=== PATIENT | female | born 1990 | race Hispanic/Latino ===

== ENCOUNTER 2020-01-29 10:34 | Emergency (ER) | payer BC, OTHER ==
[2020-01-29] MEDS ORDERED: MAGNE/ALUM HYDROXD 30 ML UCUP ONE (11:36)
[2020-01-29] MEDS ORDERED: LIDOCAINE VISCOUS 2% SOLN 15 ML UDC ONE (11:37)
[2020-01-29] MEDS ORDERED: NA CHLORIDE 0.9% 1,000 ML ONE (11:37)
[2020-01-29] MEDS ORDERED: ONDANSETRON 4 MG/2 ML VIAL ONE (11:37)
[2020-01-29] MEDS ORDERED: MORPHINE 4 MG/ML SYR ONE (11:37)
[2020-01-29 12:07] LABS: Basophils % 0.3 % (0-1.3); Hematocrit 41.4 % (36.0-45.0); Lymphocytes % 24.8 % (15.3-44.8); MPV 8.4 fL (7.6-11.3); RBC Red Blood Cell Count 4.91 M/uL (3.86-4.86)
[2020-01-29 12:28] LABS: ALT/SGPT 28 U/L (12-78); AST/SGOT 17 U/L (15-37); Albumin 3.5 g/dL (3.4-5.0); Alkaline Phosphatase 70 U/L (45-117); BUN Blood Urea Nitrogen 9 mg/dL (7-18); Bicarbonate 28 mmol/L (21-32); Bilirubin Direct 0.2 mg/dL (0-0.2); Bilirubin Total 0.6 mg/dL (0.2-1.0); Glucose Level 120 mg/dL (74-106); Lipase 120 U/L (73-393); Potassium 3.6 mmol/L (3.5-5.1); Protein, Total 7.2 g/dL (6.4-8.2); Sodium Level 139 mmol/L (136-145)
--- NOTE | 2020-01-29 12:34 | RAD REPORT ---
EXAM DESCRIPTION: CT - Abdomen Pelvis W Contrast - 01/29/2020 12:21 pm CLINICAL HISTORY: Abdominal pain COMPARISON: none. TECHNIQUE: Computed axial tomography of the abdomen pelvis was obtained. 100 cc Isovue-300 was admin istered intravenously. Oral contrast was not requested which limits evaluation of bowel and appendix. All CT scans are performed using dose optimization technique as appropriate and may include automated exposure control or mA/KV adjustment according to patient size. FINDINGS: Fatty liver. Cholecystectomy Spleen, pancreas, adrenal and kidneys appear unremarkable. There is no evidence of diverticulitis. An abnormal appendix is not visualized IMPRESSION: No acute abnormality is displayed.
--- NOTE | 2020-01-29 13:47 | EDPHYS ---
Physician Documentation [facility] Name: Ciarra Gonzalez Age: 29 yrs Sex: Female : 1990 Arrival Date: 01/29/2020 Time: 10:39 Bed 14 Private MD: ED Physician oLra Ocasio HPI: 01/28 13:44 This 29 yrs old Female presents to ER via Ambulatory with complaints of ma2 Abdominal Pain, Vomiting. 13:44 The patient presents to the emergency department with nausea, vomiting. Onset: The ma2 symptoms/episode began/occurred gradually, 1 week(s) ago. Associated signs and symptoms: Pertinent negatives: belching, dysuria, GI bleeding, hematuria. Severity of symptoms: At their worst the symptoms were moderate in the emergency department the symptoms are unchanged. Severity of symptoms: in the emergency department the symptoms. The patient has not experienced similar symptoms in the past. Historical: - Allergies: 11:00 NKDA; ss - Home Meds: 11:00 None [Active]; ss - PMHx: 11:00 None; ss - PSHx: 11:00 ; Cholecystectomy; ss - Immunization history:: Adult Immunizations unknown. - Social history:: Smoking status: Patient denies any tobacco usage or history of. Patient/guardian denies using alcohol, street drugs, The patient lives with family. - Family history:: not pertinent. ROS: 13:44 Constitutional: Negative for fever, chills, and weight loss. ma2 13:44 All other systems are negative. Exam: 13:44 Constitutional: This is a well developed, well nourished patient who is awake, alert, ma2 and in no acute distress. Head/Face: Normocephalic, atraumatic. Eyes: Pupils equal round and reactive to light, extra-ocular motions intact. Lids and lashes normal. Conjunctiva and sclera are non-icteric and not injected. Cornea within normal limits. Periorbital areas with no swelling, redness, or edema. ENT: Nares patent. No nasal discharge, no septal abnormalities noted. Tympanic membranes are normal and external auditory canals are clear. Oropharynx with no redness, swelling, or masses, exudates, or evidence of obstruction, uvula midline. Mucous membranes moist. Neck: Trachea midline, no thyromegaly or masses palpated, and no cervical lymphadenopathy. Supple, full range of motion without nuchal rigidity, or vertebral point tenderness. No Meningismus. Chest/axilla: Normal chest wall appearance and motion. Nontender with no deformity. No lesions are appreciated. Cardiovascular: Regular rate and rhythm with a normal S1 and S2. No gallops, murmurs, or rubs. Normal PMI, no JVD. No pulse deficits. Respiratory: Lungs have equal breath sounds bilaterally, clear to auscultation and percussion. No rales, rhonchi or wheezes noted. No increased work of breathing, no retractions or nasal flaring. Abdomen/GI: Soft, non-tender, with normal bowel sounds. No distension or tympany. No guarding or rebound. No evidence of tenderness throughout. Skin: Warm, dry with normal turgor. Normal color with no rashes, no lesions, and no evidence of cellulitis. MS/ Extremity: Pulses equal, no cyanosis. Neurovascular intact. Full, normal range of motion. Neuro: Awake and alert, GCS 15, oriented to person, place, time, and situation. Cranial nerves II-XII grossly intact. Motor strength 5/5 in all extremities. Sensory grossly intact. Cerebellar exam normal. Normal gait. Vital Signs: 10:58 BP 128 / 89; Pulse 105; Resp 14; Temp 98.0(TE); Pulse Ox 98% on R/A; Weight 72.57 kg; ss Height 4 ft. 9 in. (144.78 cm); Pain 8/10; 12:30 BP 115 / 83; Pulse 78; Resp 18; Pulse Ox 100% on R/A; Pain 5/10; em 14:09 BP 118 / 78; Pulse 68; Resp 18; Pulse Ox 100% on R/A; Pain 2/10; em 10:58 Body Mass Index 34.62 (72.57 kg, 144.78 cm) ss MDM: 11:14 Patient medically screened. ma2 13:44 Differential diagnosis: gastritis, pancreatitis, appendicitis. Data reviewed: vital ma2 signs, nurses notes. Counseling: I had a detailed discussion with the patient and/or guardian regarding: the historical points, exam findings, and any diagnostic results supporting the discharge/admit diagnosis, the presence of at least one elevated blood pressure reading (>120/80) during this emergency department visit, the need for outpatient follow up. Response to treatment: the patient's symptoms have resolved after treatment. 01/28 11:19 Order name: Basic Metabolic Panel [facility] 01/28 11:19 Order name: CBC with Diff tn2 01/28 11:19 Order name: Hepatic Function; Complete Time: 12:34 ma2 01/28 11:19 Order name: Lipase; Complete Time: 12:34 ma2 01/28 11:20 Order name: Basic Metabolic Panel; Complete Time: 12:34 EDMS 01/28 11:19 Order name: CT Abd/Pelvis - IV Contrast Only; Complete Time: 13:15 ma2 01/28 11:20 Order name: CBC with Automated Diff; Complete Time: 12:34 EDMS 01/28 12:18 Order name: CREATININE WHOLE BLOOD; Complete Time: 12:34 EDMS 01/28 14:04 Order name: Urine Dipstick--Ancillary (enter results) 01/28 14:04 Order name: Urine --Ancillary (enter results) 01/28 11:19 Order name: IV Saline Lock; Complete Time: 12:16 ma2 01/28 11:19 Order name: Labs collected and sent; Complete Time: 12:16 ma2 01/28 11:19 Order name: Urine Dipstick-Ancillary (obtain specimen); Complete Time: 13:52 ma2 Administered Medications: 11:55 Drug: Zofran (Ondansetron) 4 mg Route: IVP; Site: right antecubital; em 13:34 Follow up: Response: No adverse reaction; Nausea is decreased em 11:57 Drug: morphine 4 mg Route: IVP; Site: right antecubital; em 12:30 Follow up: Response: No adverse reaction; Marked relief of symptoms; Pain is decreased; em RASS: Alert and Calm (0) 12:34 Drug: GI Cocktail without - (Maalox Suspension 30 ml, Lidocaine Liquid 2 % 15 em ml) Route: PO; 13:52 Follow up: Response: No adverse reaction; Marked relief of symptoms; Pain is decreased em 12:34 Drug: NS 0.9% 1000 ml Route: IV; Rate: 1 bolus; Site: right antecubital; em 13:52 Follow up: IV Status: Completed infusion; IV Intake: 1000ml em Disposition: 01/29/20 13:46 Discharged to Home. Impression: Generalized abdominal pain. - Condition is Stable. - Discharge Instructions: Abdominal Pain, Adult, Colic. - Prescriptions for Zofran 4 mg Oral Tablet - take 1 tablet by ORAL route every 12 hours As needed; 20 tablet. Diclofenac Sodium 75 mg Oral Tablet Sustained Release - take 1 tablet by ORAL route 2 times per day; 30 tablet. Pepcid 20 mg Oral Tablet - take 1 tablet by ORAL route once daily for 10 days; 10 tablet. - Work release form, Medication Reconciliation Form, Thank You Letter, Antibiotic Education, Prescription Opioid Use form. - Follow up: Private Physician; When: Tomorrow; Reason: Continuance of care. Signatures: Dispatcher [employer] [facility] Krishna Arguello RN Asha Toussaint RN RN ss Alzahri, Mohammad, MD MD ma2 Corrections: (The following items were deleted from the chart) 11:21 11:20 Creatinine for Radiology+C.LAB.BRZ ordered. [facility] 14:09 13:46 01/29/2020 13:46 Discharged to Home. Impression: Generalized abdominal pain. em Condition is Stable. Prescriptions for Zofran 4 mg Oral Tablet - take 1 tablet by ORAL route every 12 hours As needed; 20 tablet, Diclofenac Sodium 75 mg Oral Tablet Sustained Release - take 1 tablet by ORAL route 2 times per day; 30 tablet. and Forms are Medication Reconciliation Form, Thank You Letter, Antibiotic Education, Prescription Opioid Use. Follow up: Private Physician; When: Tomorrow; Reason: Continuance of care. ma2
--- NOTE | 2020-01-29 13:47 | ER ---
Nurse's Notes [facility] Name: Ciarra Gonzalez Age: 29 yrs Sex: Female : 1990 Arrival Date: 01/29/2020 Time: 10:39 Bed 14 Private MD: Diagnosis: Generalized abdominal pain Presentation: 01/28 10:58 Chief complaint: Patient states: RLQ pain that radiates towards R flank with nausea and ss vomiting that began at 5pm yesterday evening. Coronavirus screen: Surgical mask placed on patient. Patient moved to private room, placed in contact and droplet isolation with eye protection until further assessment. Patient denies a cough. Patient denies measured and/or subjective temperature greater than 100.4F prior to today's visit. Patient denies travel on a cruise ship or to a country the [facility] currently lists as an affected area. Patient denies contact with known and/or suspected case of COVID-19. Ebola Screen: Patient negative for fever greater than or equal to 101.5 degrees Fahrenheit, and additional compatible Ebola Virus Disease symptoms Patient denies exposure to infectious person. Patient denies travel to an Ebola-affected area in the 21 days before illness onset. Initial Sepsis Screen: Does the patient meet any 2 criteria? HR > 90 bpm. Does the patient have a suspected source of infection? No. Patient's initial sepsis screen is negative. Risk Assessment: Do you want to hurt yourself or someone else? Patient reports no desire to harm self or others. Onset of symptoms was January 28, 2020. 10:58 Method Of Arrival: Ambulatory 10:58 Acuity: CHRISTIANO 3 ss Historical: - Allergies: 11:00 NKDA; ss - Home Meds: 11:00 None [Active]; ss - PMHx: 11:00 None; ss - PSHx: 11:00 ; Cholecystectomy; ss - Immunization history:: Adult Immunizations unknown. - Social history:: Smoking status: Patient denies any tobacco usage or history of. Patient/guardian denies using alcohol, street drugs, The patient lives with family. - Family history:: not pertinent. Screenin:21 Abuse screen: Denies threats or abuse. Nutritional screening: No deficits noted. em Tuberculosis screening: No symptoms or risk factors identified. Fall Risk None identified. Assessment: 11:12 General: Appears in no apparent distress. comfortable, Behavior is calm, cooperative, em appropriate for age, Denies fever. Pain: Complains of pain in right lower quadrant Pain radiates to posterior aspect of right lateral abdomen Pain currently is 8 out of 10 on a pain scale. Pain began 1 day ago. Neuro: Level of Consciousness is awake, alert, obeys commands, Oriented to person, place, time, situation, Appropriate for age. Cardiovascular: Capillary refill < 3 seconds Patient's skin is warm and dry. Respiratory: Airway is patent Respiratory effort is even, unlabored, Respiratory pattern is regular, symmetrical. GI: Abdomen is flat, Bowel sounds present X 4 quads. Abd is soft X 4 quads Abdomen is tender to palpation in right lower quadrant Reports nausea, vomiting, Patient currently denies diarrhea. Derm: Skin is intact, is healthy with good turgor, Skin is pink, warm \T\ dry. Musculoskeletal: Capillary refill < 3 seconds, Range of motion: intact in all extremities. 12:30 Reassessment: Patient appears in no apparent distress at this time. Patient is alert, em oriented x 3, equal unlabored respirations, skin warm/dry/pink. rates pain 5/10 Patient states feeling better. 14:04 Reassessment: Patient appears in no apparent distress at this time. Patient and/or vc family updated on plan of care and expected duration. Pain level reassessed. Patient is alert, oriented x 3, equal unlabored respirations, skin warm/dry/pink. Patient states symptoms have improved. Vital Signs: 10:58 BP 128 / 89; Pulse 105; Resp 14; Temp 98.0(TE); Pulse Ox 98% on R/A; Weight 72.57 kg; Height 4 ft. 9 in. (144.78 cm); Pain 8/10; 12:30 BP 115 / 83; Pulse 78; Resp 18; Pulse Ox 100% on R/A; Pain 5/10; em 14:09 BP 118 / 78; Pulse 68; Resp 18; Pulse Ox 100% on R/A; Pain 2/10; em 10:58 Body Mass Index 34.62 (72.57 kg, 144.78 cm) ED Course: 10:39 Patient arrived in ED. mr 11:00 Triage completed. ss 11:00 Arm band placed on right wrist. 11:08 Krishna Arguello, RN is Primary Nurse. em 11:14 Lora Ocasio MD is Attending Physician. ma2 11:25 Patient has correct armband on for positive identification. Placed in gown. Bed in low em position. Call light in reach. Side rails up X2. Pulse ox on. NIBP on. 11:55 Initial lab(s) drawn, by me, sent to lab. Inserted saline lock: 20 gauge in right em antecubital area, using aseptic technique. Blood collected. 12:25 CT Abd/Pelvis - IV Contrast Only In Process Unspecified. EDMS 13:56 Urine collected: clean catch specimen, clear. em 14:08 No provider procedures requiring assistance completed. IV discontinued, intact, em bleeding controlled, No redness/swelling at site. Pressure dressing applied. Administered Medications: 11:55 Drug: Zofran (Ondansetron) 4 mg Route: IVP; Site: right antecubital; em 13:34 Follow up: Response: No adverse reaction; Nausea is decreased em 11:57 Drug: morphine 4 mg Route: IVP; Site: right antecubital; em 12:30 Follow up: Response: No adverse reaction; Marked relief of symptoms; Pain is decreased; em RASS: Alert and Calm (0) 12:34 Drug: GI Cocktail without - (Maalox Suspension 30 ml, Lidocaine Liquid 2 % 15 em ml) Route: PO; 13:52 Follow up: Response: No adverse reaction; Marked relief of symptoms; Pain is decreased em 12:34 Drug: NS 0.9% 1000 ml Route: IV; Rate: 1 bolus; Site: right antecubital; em 13:52 Follow up: IV Status: Completed infusion; IV Intake: 1000ml em Intake: 13:52 IV: 1000ml; Total: 1000ml. em Outcome: 13:46 Discharge ordered by . ma2 14:08 Discharged to home ambulatory. em 14:08 Condition: good 14:08 Discharge instructions given to patient, Instructed on discharge instructions, follow up and referral plans. medication usage, Demonstrated understanding of instructions, follow-up care, medications, Prescriptions given X 3. 14:09 Patient left the ED. em Signatures: Dispatcher [facility] Stacie Krishna Stephen RN RN Asha Garcia RN RN Lora Ocasio MD MD ma2 Dianna Montanez, RN RN vc
[2020-01-29 14:16] LABS: Urine Blood NEGATIVE (NEG); Urine Glucose NEGATIVE (NEG); Urine Protein NEGATIVE (NEG); Urine Specific Gravity 1.015 (1.005-1.030); Urine pH 8.5 (5.0-7.0)
[2020-01-29 14:17] VITALS: TEMP 98
[2020-01-29 14:19] VITALS: O2SAT 100
[2020-01-29 14:35] VITALS: BP 118/78
== END 2020-01-29 14:09 | disposition home or self-care (01) ==
LOC: ER 10:34
DX: R10.84 Generalized abdominal pain (principal)
CPT/HCPCS: 96361; 85025; 80048; 36415; 81025; 82565; 80076; 81003; 83690; 74177; 96375; 96374; 99284; Q9967; J7030; J2405